=== PATIENT | male | born 1995 | race Caucasian/White ===

== ENCOUNTER 2017-09-23 13:44 | Emergency (ER) | payer SELFPAY ==
[~2017-09-23] VITALS: Ht 190.5 cm; Wt 72.3 kg
[2017-09-23 13:58] VITALS: TEMP 36.8; Ht 190.5 cm; Wt 72.3 kg
[2017-09-23] MEDS ORDERED: XYLOCAINE 1%/SOD BICARB 20 ML VIAL INFIL ONE (14:15)
[2017-09-23] MEDS ORDERED: BUPIVACAINE 0.5 % 5 MG/1 ML MPF 30ML VIAL INFIL ONE (14:15)
--- NOTE | 2017-09-23 14:33 | EMERGENCY ROOM VISIT NOTE ---
ED Visit Note First contact with patient: 14:04 CHIEF COMPLAINT: Finger laceration HISTORY OF PRESENT ILLNESS: This patient is a 22-year-old male that presents to the emergency department with complaints of a laceration that he sustained to his left thumb at work today. 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 There is still mild bleeding. He complains of minimal pain. He is feeling slightly lightheaded. His tetanus shot is up-to-date. REVIEW OF SYSTEMS: A 6 system review of systems was completed with positives and pertinent negatives listed in the HPI. ALLERGIES: No known drug allergies MEDICATIONS: Reviewed PMH: Otherwise healthy SOCIAL HISTORY: He does not smoke, occasional alcohol use. The patient has a [employer] student. PHYSICAL EXAM: Vital Signs: Reviewed Nurse's notes, vital signs stable. GENERAL : 22-year-old male, in no acute distress, well developed, well nourished. SKIN : There is a 1 cm avulsion/flaplike injury to the distal aspect of the left thumb. There is mild oozing of blood. There is no bone or prominent blood vessels visible at the end of the wound. Full flexion and extension of the thumb. Dulled sensation noted to the distal aspect of the wound. EMERGENCY DEPARTMENT COURSE: I examined the patient. X-ray of the left thumb was performed viewed IMPRESSION: No fractures. Soft tissue laceration at the distal tip of the thumb. Electronically signed by: Vikas Winslow M.D. 09/23/2017 2:35 PM Dictated Date/Time: 09/23/2017 2:33 PM The status of this report is Signed. Draft = Not yet reviewed or approved by Radiologist. Signed = Reviewed and approved by Radiologist. <AttendingPhy></AttendingPhy> <FamilyPhy>[facility]</FamilyPhy> <PrimaryPhy>[facility]</PrimaryPhy> <UnitNumber>[id number]</ UnitNumber> <VisitNumber>[id number]</VisitNumber> <PatientName>ELOY PATEL</ PatientName> <DateOfBirth>1995</DateOfBirth> <Location>[facility]</Location> < ServiceDate>09/23/17</ServiceDate> <MNE>ESINDI</MNE> <OrderingPhy>DrewFidelia YAZMIN</OrderingPhy> <OrderingPhyMNE>f rep ord dr lópez</OrderingPhyMNE> < DictatingPhyMNE>f rep dict dr lópez</DictatingPhyMNE> <CCListMNE>f rep ct mne</ CCListMNE> <AdmittingPhyMNE>f pt admit dr lópez</AdmittingPhyMNE> <AttendingPhyMNE >f pt attend dr lópez</AttendingPhyMNE> <ConsultingPhyMNE>f pt consult dr lópez</ConsultingPhyMNE> <FamilyPhyMNE>f pt fam dr lópez</FamilyPhyMNE> <OtherPhyMNE>f pt other dr lópez</OtherPhyMNE> < PrimaryPhyMNE>f pt prim care dr lópez</PrimaryPhyMNE> <ReferringPhyMNE>f pt referring dr lópez</ReferringPhyMNE> Verbal consent was obtained to perform the procedure. Using sterile technique the wound was cleansed with Betadine. 3 ml of 1% buffered lidocaine with marking was used to perform a digital block to anesthetize the patient. The area was sterilely draped. Once the patient was anesthetized, the wound was copiously irrigated under pressure with sterile saline. The wound was explored and there were no deep structures injured. The laceration was repaired using 6 simple interrupted 5-0 nylon sutures. The patient tolerated the procedure well. Hemostasis was achieved. The area was cleaned with sterile saline and dressed with bacitracin ointment and bandage. The patient was discharged home in good condition. DIAGNOSIS: Finger laceration DISCHARGE INSTRUCTIONS & TREATMENT: Keep wound clean. It is okay to gently wash the area with soapy water. Do not submerse it in water for long periods of time such as swimming, going in hot tubs or taking baths until the sutures come out. Do not allow any crusting or dried blood to accumulate on sutures. If this occurs, use a 1:1 solution of hydrogen peroxide/water on a Q-tip to clean the wound. Use an antibiotic ointment for 3-4 days, then let wound dry. Suture removal in 14 days. Return sooner for any signs of infection (increasing redness, swelling, drainage). Ice and elevate for swelling and pain. Ibuprofen 600 mg and Tylenol 1000 mg every 6 hrs for pain.
--- NOTE | 2017-09-23 14:36 | DIAGNOSTIC IMAGING REPORT ---
LEFT THUMB 3 VIEWS HISTORY: L distal thumb laceration COMPARISON: None. FINDINGS: There is no fracture or dislocation. Soft tissue laceration at the distal tip of the thumb. No radiopaque foreign bodies. IMPRESSION: No fractures. Soft tissue laceration at the distal tip of the thumb. Electronically signed by: Vikas Winslow M.D. 09/23/2017 2:35 PM Dictated Date/Time: 09/23/2017 2:33 PM
[2017-09-23 14:56] VITALS: BP 117/76; PULSE 70; O2SAT 100
== END 2017-09-23 15:06 | disposition home or self-care (01) ==
LOC: C.EDB 13:46 → C.EDD 15:06
DX: S61.012A Laceration without foreign body of left thumb without damage to nail, initial encounter (principal); W26.0XXA Contact with knife, initial encounter; Y99.0 Civilian activity done for income or pay; Y93.G1 Activity, food preparation and clean up; Y92.89 Other specified places as the place of occurrence of the external cause